=== PATIENT | male | born 1955 | race Caucasian/White ===

== ENCOUNTER → 2017-02-18 | Day surgery (SDC) | payer OTHER ==
[~2017-02-18] MED LIST: KENALOG INJ 40 MG ONE; MARCAINE/EPINEPHRINE ONE; XYLOCAINE 1% and EPINEPHRINE 1:100,000 ONE
[2017-02-18 13:49] VITALS: BP 145/71
== END | disposition home or self-care (01) | DRG 552 ==
LOC: SURG1 12:05
PROVIDERS: ATTEND Specialist
PROC: 3E0R33Z Introduction of Anti-inflammatory into Spinal Canal, Percutaneous Approach (ICD-10-PCS; 2017-02-18)
PROC: B01BZZZ Fluoroscopy of Spinal Cord (ICD-10-PCS; 2017-02-18)
PROC: 3E0R3BZ Introduction of Anesthetic Agent into Spinal Canal, Percutaneous Approach (ICD-10-PCS; principal; 2017-02-18 12:30)
DX: M46.86 Other specified inflammatory spondylopathies, lumbar region (principal)
CPT/HCPCS: 62323; 76000; S0020; J2001; J3301

== ENCOUNTER → 2017-09-21 | Day surgery (SDC) | payer OTHER ==
[~2017-09-21] MED LIST changes: +KENALOG INJ 40 MG IM ONE; -KENALOG INJ 40 MG ONE; +MARCAINE 0.5% ONE; -MARCAINE/EPINEPHRINE ONE; +XYLOCAINE 1 % (PLAIN) ONE; -XYLOCAINE 1% and EPINEPHRINE 1:100,000 ONE
--- NOTE | 2017-09-21 12:46 | DR.UPDATE ---
H&P Update History and Physical Update: History and Physical reviewed and patient examined. Changes noted: NO Yes with the following:Agree with H&P. Will proceed with L5-S1 facet injections bilateral
[2017-09-21 13:15] VITALS: BP 138/78
== END | disposition home or self-care (01) ==
LOC: SURG1 11:45
PROVIDERS: ATTEND Orthopaedic Surgery
PROC: 3E0U3BZ Introduction of Anesthetic Agent into Joints, Percutaneous Approach (ICD-10-PCS; principal; 2017-09-21 12:00)
PROC: 3E0U33Z Introduction of Anti-inflammatory into Joints, Percutaneous Approach (ICD-10-PCS; principal; 2017-09-21 12:00)
DX: M46.86 Other specified inflammatory spondylopathies, lumbar region (principal)
CPT/HCPCS: 64493; 76000; S0020; J2001; J3301